=== PATIENT | female | born 1980 | race Caucasian/White ===

== ENCOUNTER 2018-09-26 17:21 | Emergency (ER) | payer MEDICAID ==
[~2018-09-26] VITALS: Wt 82.4 kg
[2018-09-26 17:50] VITALS: BP 158/68; PULSE 75; RESP 16
[2018-09-26] MEDS ORDERED: KETOROLAC 30 MG INJ IM STA (19:52)
--- NOTE | 2018-09-26 19:56 | ERD ---
ER Documentation Chief Complaint Chief Complaint L foot pain/ swelling x2wks; prev dx'd w bone spurs. no relief w tylenol HPI 38-year-old female is here with left foot pain and swelling she has had for 2 weeks. She has a history of bone spurs she states. She takes Tylenol but does not help. No fever. No recent travel. No calf pain. She is ambulatory. ROS All systems reviewed and are negative except as per history of present illness. Medications Home Meds Active Scripts Hydrocodone/Acetaminophen ([place] 5-325 Tablet) 1 Each Tablet, 1 TAB PO Q6H PRN for PAIN, #15 TAB Prov:LANCE DUENAS PA-C 09/26/18 Ibuprofen* (Motrin*) 800 Mg Tab, 800 MG PO Q6, #30 TAB Prov:LANCE DUENAS PA-C 09/26/18 Allergies Allergies: Coded Allergies: No Known Allergy (Unverified , 09/26/18) FmHx Family History: No diabetes Physical Exam Vitals Vital Signs Date Temp Pulse Resp B/P (MAP) Pulse Ox O2 O2 Flow FiO2 Time Delivery Rate 09/26/18 98.0 75 16 158/68 98 17:50 (98) Physical Exam Const: No acute distress Head: Atraumatic Eyes: Normal Conjunctiva ENT: Normal External Ears, Nose and Mouth. Neck: Full range of motion. No meningismus. Resp: Clear to auscultation bilaterally Cardio: Regular rate and rhythm, no murmurs Lower Extremity -left: Skin: Mild inner foot swelling and tenderness, no erythema or warmth Compartments: Soft Motor: Full active range of motion hip/knee/ankle/foot Sensation: Intact to light touch FDWS/MF/LF/P surfaces. Bones: Nontender pelvis/knee/proximal tibia/ malleoli/foot Pulses/Perfusion: 2+ DP, Capillary refill < 2 seconds Results 24 hrs Laboratory Tests Test 09/26/18 20:12 POC Beta HCG, Qualitative NEGATIVE Current Medications Medications Dose Sig/Patti Start Time Status Last (Trade) Ordered Route PRN Stop Time Admin Dose Reason Admin 1 tab ONCE ONCE 09/26/18 DC 09/26/18 Acetaminophen PO 20:00 09/26/18 20:15 / 20:01 Hydrocodone Bitart ([place] (5/325)) Ketorolac 30 mg ONCE STAT 09/26/18 DC 09/26/18 Tromethamine IM 19:52 09/26/18 20:17 (Toradol) 19:54 Procedures/MDM Patient has foot pain for 2 weeks. No trauma. No signs of infection. X-ray ordered. X-ray shows no bony abnormalities. Prescription for ibuprofen and [place] given. This is likely musculoskeletal, gout versus plantar fasciitis. Patient counseled regarding my diagnostic impression and care plan. Prior to discharge all questions answered. Pt agrees with treatment plan and understands strict return precautions. Pt is instructed to follow up with primary care provider within 24-48 hours. Precautionary instructions provided including instructions to return to the ER if not improving or for any worsening or changing symptoms or concerns. Departure Diagnosis: Primary Impression: Foot pain Condition: Stable LANCE DUENAS PA-C September 26, 2018 19:56
[2018-09-26] MEDS ORDERED: HYDROCODONE/APAP (5/325) TAB PO ONE (20:00)
[2018-09-26] MEDS ORDERED: IBUP800T48 PO (20:48)
[2018-09-26] MEDS ORDERED: HYDR-4011 PO (20:48)
== END 2018-09-26 20:56 | disposition home or self-care (01) ==
LOC: FTE 17:21
DX: M79.672 Pain in left foot (principal)
CPT/HCPCS: 73630; 81025; 96372; J1885; Z7502; Z7610

== ENCOUNTER 2018-09-30 23:36 | Emergency (ER) | payer MEDICAID ==
[~2018-09-30] VITALS: Wt 84.3 kg
[~2018-09-30 23:36] MED LIST: HYDR-4011 PO; IBUP800T48 PO
[2018-10-01] MEDS ORDERED: KETOROLAC 30 MG INJ IM STA (00:46)
[2018-10-01] MEDS ORDERED: ACET-141 PO (01:29)
--- NOTE | 2018-10-01 01:33 | ERD ---
ER Documentation Chief Complaint Chief Complaint L FOOT PAIN X 3 WEEKS, DENIES INJURY HPI 38-year-old female presents for left foot pain x3 weeks. Patient states that the pain is in the left heel area, rated 8 out of 10, states to be constant. She has been taking some Motrin at home without relief. She was here in the ER a week ago, x-rays were done at the time of unremarkable. She was given some [place] and Motrin. She states she has had prior similar symptoms in the past, but a year ago in [facility] was given a injection into her heel which helped with the pain. She states he has a history of bone spurs. Denies any trauma recently. No significant past medical history. Denies fevers or chills. no other modifying factors noted, no other treatments tried at home. ROS All systems reviewed and are negative except as per history of present illness. Medications Home Meds Active Scripts Acetaminophen* (Acetaminophen*) 500 MG Extra Strength Tablet, 500 MG PO Q4H PRN for PAIN AND OR ELEVATED TEMP, #30 TAB Prov:RICHARD DWYER DO 10/01/18 Hydrocodone/Acetaminophen ([place] 5-325 Tablet) 1 Each Tablet, 1 TAB PO Q6H PRN for PAIN, #15 TAB Prov:LANCE DUENAS PA-C 09/26/18 Ibuprofen* (Motrin*) 800 Mg Tab, 800 MG PO Q6, #30 TAB Prov:LANCE DUENAS PA-C 09/26/18 Allergies Allergies: Coded Allergies: No Known Allergy (Unverified , 09/26/18) PMhx/Soc History of Surgery: Yes (3 C SECTION ) Anesthesia Reaction: No Hx Neurological Disorder: No Hx Respiratory Disorders: No Hx Cardiac Disorders: No Hx Psychiatric Problems: No Hx Miscellaneous Medical Probl: No Hx Alcohol Use: No Hx Substance Use: No Hx Tobacco Use: No FmHx Family History: No coronary disease Physical Exam Vitals Vital Signs Date Temp Pulse Resp B/P (MAP) Pulse Ox O2 O2 Flow FiO2 Time Delivery Rate 09/30/18 98.0 66 20 130/68 97 23:45 (88) Physical Exam Const: No acute distress Resp: Clear to auscultation bilaterally Cardio: Regular rate and rhythm, no murmurs Skin: No petechiae or rashes Back: No midline or flank tenderness Neur: Awake and alert Psych: Normal Mood and Affect Lower Extremity -left Skin: No laceration Compartments: Soft Motor: Full active range of motion hip/knee/ankle/foot Sensation: Intact to light touch FDWS/MF/LF/P surfaces. Bones: Nontender pelvis/knee/proximal tibia/ malleoli/there is tenderness palpation over the left heel and lateral malleoli area Joints: Mild swelling noted over the lateral malleoli area Pulses/Perfusion: 2+ DP, Capillary refill < 2 seconds Results 24 hrs Laboratory Tests Test 10/01/18 01:05 POC Beta HCG, Qualitative NEGATIVE Current Medications Medications Dose Sig/Patti Start Time Status Last (Trade) Ordered Route PRN Stop Time Admin Dose Reason Admin Ketorolac 30 mg ONCE STAT 10/01/18 DC 10/01/18 Tromethamine IM 00:46 01:11 (Toradol) 10/01/18 00:47 Procedures/MDM Medical Decision Making: Differential diagnosis includes but not limited to fracture, dislocation, muscle strain, ligamentous sprain. Patient appeared well on physical exam. There was tenderness over the left heel Patient was neurovascularly intact ED course: Patient was given Toradol. Symptoms improved with treatment. Imaging: No imaging was done in the current visit She had a nankle x-ray done in the ER here 1 week ago and was noted to be unremarkable Prescription(s): Patient given prescription for supportive medication(s). Patient advised to follow up with PCP in 1-2 days. Patient advised to return to ED for new or worsening symptoms. Patient stable on discharge from the ED. Disclaimer: Inadvertent spelling and grammatical errors are likely due to EHR/dictation software use and do not reflect on the overall quality of patient care. Also, please note that the electronic time recorded on this note does not necessarily reflect the actual time of the patient encounter. Departure Diagnosis: Primary Impression: Foot pain Laterality: left Qualified Codes: M79.672 - Pain in left foot Condition: Fair Patient Instructions: Understanding Heel Pain Referrals: COMMUNITY CLINICS YOU HAVE RECEIVED A MEDICAL SCREENING EXAM AND THE RESULTS INDICATE THAT YOU DO NOT HAVE A CONDITION THAT REQUIRES URGENT TREATMENT IN THE EMERGENCY DEPARTMENT. FURTHER EVALUATION AND TREATMENT OF YOUR CONDITION CAN WAIT UNTIL YOU ARE SEEN IN YOUR DOCTORS OFFICE WITHIN THE NEXT 1-2 DAYS. IT IS YOUR RESPONSIBILITY TO MAKE AN APPOINTMENT FOR FOLOW-UP CARE. IF YOU HAVE A PRIMARY DOCTOR --you should call your primary doctor and schedule an appointment IF YOU DO NOT HAVE A PRIMARY DOCTOR YOU CAN CALL OUR PHYSICIAN REFERRAL HOTLINE AT IF YOU CAN NOT AFFORD TO SEE A PHYSICIAN YOU CAN CHOSE FROM THE FOLLOWING [facility] [id number] [facility] [address] [facility] [address] [facility] [address] [facility] [address] [facility]. [facility]. [address] Additional Instructions: Llame al doctor MAANA y emily raudel GISELLE PARA DENTRO DE 1-2 GASTON.Dgale a la secretaria que nosotros le instruimos hacer esta giselle.Avise o llame si burleson condicin se empeora antes de la giselle. Regresa aqui si peor o no mejor. RICHARD DWYER DO October 01, 2018 01:33
[2018-10-01] MEDS ORDERED: TRIAMCINOLONE ACET 40 MG/ML INJ INJ STA (02:04)
[2018-10-01] MEDS ORDERED: LIDOCAINE 1% (MPF) 5 ML VIAL INFIL ONE (02:30)
[2018-10-01 02:37] VITALS: BP 109/74; PULSE 65; RESP 20
== END 2018-10-01 02:45 | disposition home or self-care (01) ==
LOC: FTE 23:36
DX: M79.672 Pain in left foot (principal)
CPT/HCPCS: 81025; 96372; J1885; Z7502; Z7610

== ENCOUNTER 2018-11-12 10:28 | Emergency (ER) | payer MEDICAID, OTHER ==
[~2018-11-12] VITALS: Ht 160 cm; Wt 79.7 kg
[~2018-11-12 10:28] MED LIST changes: +ACET-141 PO
[2018-11-12 10:32] VITALS: BP 120/85; PULSE 113; RESP 18; Ht 160 cm; Wt 79.7 kg
[2018-11-12] MEDS ORDERED: hydrOXYzine PAMOATE 25 MG CAP PO ONE (12:00)
[2018-11-12] MEDS ORDERED: ONDANSETRON (ODT) 4 MG TAB ODT STA (12:00)
--- NOTE | 2018-11-12 12:02 | ERD ---
ER Documentation Chief Complaint Chief Complaint CHEST PRESSURE , NAUSEA , FEELS HER FEET COLD X 1 DAY HPI This is a 38-year-old female patient presents emergency room with complaint of a chest pressure nausea, cold feet x1 day. Patient denies fever, no diarrhea, no dysuria, no cough. States that she has had some nausea and one episode of vomiting. No sick contacts, no recent travel, no hormone therapy, no leg pain, no family history of medical problems no personal medical problems. States the symptoms are intermittent and are not exacerbated or abated by any activity. States that she has been under a lot of stress lately as this is the 2-year anniversary since her was murdered in [facility], she is now a single parent to 3 children, and her mother has been ill lately. States that she feels as though she is under a lot of stress. ROS All systems reviewed and are negative except as per history of present illness. Medications Home Meds Active Scripts Ondansetron (Ondansetron Odt) 4 Mg Tab.rapdis, 4 MG PO Q6H PRN for NAUSEA AND/OR VOMITING for 7 Days, #10 TAB Prov:TANIA SHEPPARD NP 11/12/18 Hydroxyzine Pamoate* (Vistaril*) 25 Mg Capsule, 25 MG PO Q6H PRN for ANXIETY for 7 Days, #15 CAP Prov:TANIA SHEPPARD NP 11/12/18 Acetaminophen* (Acetaminophen*) 500 MG Extra Strength Tablet, 500 MG PO Q4H PRN for PAIN AND OR ELEVATED TEMP, #30 TAB Prov:RICHARD DWYER DO 10/01/18 Hydrocodone/Acetaminophen ([place] 5-325 Tablet) 1 Each Tablet, 1 TAB PO Q6H PRN for PAIN, #15 TAB Prov:LANCE DUENAS PA-C 09/26/18 Ibuprofen* (Motrin*) 800 Mg Tab, 800 MG PO Q6, #30 TAB Prov:LANCE DUENAS PA-C 09/26/18 Allergies Allergies: Coded Allergies: No Known Allergy (Unverified , 11/12/18) PMhx/Soc History of Surgery: Yes (3 C SECTION ) Anesthesia Reaction: No Hx Neurological Disorder: No Hx Respiratory Disorders: No Hx Cardiac Disorders: No Hx Psychiatric Problems: No Hx Miscellaneous Medical Probl: No Hx Alcohol Use: No Hx Substance Use: No Hx Tobacco Use: No Smoking Status: Never smoker FmHx Family History: No diabetes, No coronary disease, No other Physical Exam Vitals Vital Signs Date Temp Pulse Resp B/P (MAP) Pulse Ox O2 O2 Flow FiO2 Time Delivery Rate 11/12/18 98.1 113 18 120/85 98 10:32 (97) Physical Exam Const: No acute distress Head: Atraumatic Eyes: Normal Conjunctiva, PERRL, EOMI ENT: Normal External Ears, Nose and Mouth. Pharynx pink, no lesions, no exudate did Neck: Full range of motion. No meningismus. Lymphadenopathy Resp: Clear to auscultation bilaterally, no wheezing, no rales, no rhonchi Cardio: Regular rate and rhythm, no murmurs Abd: Soft, non tender, non distended. Normal bowel sounds Skin: No petechiae or rashes, no bruises, skin color appropriate for ethnicity, no cyanosis Back: No midline or flank tenderness, no CVT tenderness Ext: No cyanosis, or edema, extremities normothermic, cap refill less than 2 seconds Neur: Awake and alert, CNII-XII intact, steady gait, negative Romberg Psych: Depressed Mood, flat Affect, denies SI/HI Results 24 hrs Laboratory Tests Test 11/12/18 12:09 11/12/18 12:10 Bedside Urine pH (LAB) 6.0 Bedside Urine Protein (LAB) 1+ Bedside Urine Glucose (UA) Negative Bedside Urine Ketones (LAB) Trace Bedside Urine Blood 1+ Bedside Urine Nitrite (LAB) Negative Bedside Urine Leukocyte Esterase (L Negative POC Beta HCG, Qualitative NEGATIVE Current Medications Medications Dose Sig/Patti Start Time Status Last (Trade) Ordered Route PRN Stop Time Admin Dose Reason Admin Hydroxyzine 25 mg ONCE ONCE 11/12/18 DC 11/12/18 Pamoate PO 12:00 12:11 (Vistaril) 11/12/18 12:02 Ondansetron 4 mg ONCE STAT 11/12/18 DC 11/12/18 HCl (Zofran ODT 12:00 12:11 Odt) 11/12/18 12:02 Procedures/MDM PROCEDURES/MDM EKG: Read by Dr. Reyez Rate/Rhythm: 93 bpm normal Sinus Rhythm QRS, ST, T-waves: No changes consistent w/ acute ischemia Impression: No evidence of ischemia or arrhythmia DIAGNOSTIC IMAGING: Not indicated LAB INTERPRETATION: Negative UTI, negative -Medications: Zofran, Vistaril Patient tolerated medication well with no adverse reactions. Patient reported improvement in nausea, anxiety, chest pain MDM: This is a 38 yo female patient who presents to the ED with c/o chest pressure, nausea, and cold feet x1 day. After difficult H/P due to pt flat affect and uncooperative, patient revealed she is stressed and emotional due to the anniversary of her 's murder and feeling overwhelmed with life stressors. EKG negative for ischemia, urine negative for UTI or . The patient is clinically well appearing and stable. Symptoms are not suggestive of cardiac ischemia, pulmonary embolus, aortic dissection, or other serious etiology. Nonetheless, it is understood by both the patient and provider that no clinical or diagnostic assessment can entirely exclude such diseases. Low suspicion for cardio pulmonary etiology as she does not smoke, no hx of athlerosclerosis, no hormones, no leg pain, no recent periods of immobility, no family hx of cardiac disease (Wells score: low, [place] 0). Chest pain precautions have been given and the patient has been advised to return for worsening symptoms or any concerns. The patient's symptoms are likely are due to a stress reaction as supported by improvement in feeling of well-being and decreased nausea and chest pain with administration of Vistaril. Patient was observed, reevaluation patient states she feels better, resolution of chest pain, requesting discharge. DISPOSITION and PLAN: RX: vistaril The patient has been discharge home to follow-up with community physician. Departure Diagnosis: Primary Impression: Nausea Additional Impressions: Chest pressure Stress reaction Condition: Stable TANIA SHEPPARD NP Nov 12, 2018 12:02
[2018-11-12] MEDS ORDERED: ONDA4TAB14 PO (13:24)
[2018-11-12] MEDS ORDERED: HYDR25CA PO (13:24)
== END 2018-11-12 13:30 | disposition home or self-care (01) ==
LOC: FTE 10:28
DX: R11.2 Nausea with vomiting, unspecified (principal); F43.0 Acute stress reaction
CPT/HCPCS: 81003; 81025; 93005; Z7502; Z7610